=== PATIENT | female | born 1990 | race Two or more races ===

== ENCOUNTER 2023-10-13 12:19 | Emergency (ER) | payer MEDICAID ==
[~2023-10-13] VITALS: Ht 165.1 cm; Wt 88.9 kg
[~2023-10-13 12:19] MED LIST: EST0625T; HYDR500T13; IBUP-1455 PO; MEDR10TA9
[2023-10-13 14:19] LABS: Urine Bacteria FEW /hpf (None Seen); Urine Blood Negative /uL (Negative); Urine Clarity Clear (Clear); Urine Color Colorless (Yellow); Urine Protein, UAD Negative (Negative); Urine Specific Gravity 1.003 (1.001-1.035); Urine Urobilinogen Normal (Negative); Urine WBC 1 /hpf (0 - 5)
[2023-10-13 14:57] VITALS: PULSE 75; RESP 18; TEMP 99; O2SAT 96
[2023-10-13 15:04] LABS: Basophils # (auto) 0.1 10 ^3/uL (0-0.2); Basophils % (auto) 1.1 % (0.0-2.0); Eosinophils # (auto) 0.2 10 ^3/uL (0-0.8); Eosinophils % (auto) 2.8 % (0.0-7.0); Hematocrit 42.9 % (36.0-46.0); Hemoglobin 14.9 g/dL (12.2-16.2); Lymphocytes # (auto) 2.2 10 ^3/uL (0.4-5.4); Lymphocytes % (auto) 39.6 % (10.0-50.0); Mean Corpuscular Hemoglobin 32.8 pg (28.0-32.0); Mean Corpuscular Hgb Conc. 34.8 g/dL (32.0-36.0); Mean Corpuscular Volume 94.4 fL (80.0-100.0); Monocytes # (auto) 0.4 10 ^3/uL (0-1.3); Neutrophils # (auto) 2.7 10 ^3/uL (1.6-8.6); Neutrophils % (auto) 48.5 % (37.0-80.0); Nucleated Red Blood Cells % 0.3 %; Red Blood Cells 4.54 10^6/uL (4.0-5.20); Red Cell Distribution Width 13.2 % (11.8-14.3); White Blood Cell 5.5 10^3/uL (4.4-10.8)
[2023-10-13 15:12] LABS: Chloride 107 mmol/L (98-107); Potassium 3.9 mmol/L (3.5-5.1); Sodium 143 mmol/L (136-145)
[2023-10-13 15:13] LABS: Anion Gap 13 (5-15); Carbon Dioxide 23 mmol/L (20-30)
[2023-10-13 15:14] LABS: Calcium 10.2 mg/dL (8.5-10.1)
[2023-10-13 15:18] LABS: BUN/Creatinine Ratio 12.7 (10.0-20.0); Blood Urea Nitrogen 9 mg/dL (9-23); Glucose 86 mg/dL (74-106)
[2023-10-13] MEDS: KETOROLAC TROMETH 60MG/2ML VIAL IM ONE (15:50)
[2023-10-13 15:58] VITALS: BP 160/90
[2023-10-13] MEDS ORDERED: SUMA50TA2 PO (16:13)
[2023-10-13] MEDS ORDERED: LOSA-534 PO (16:24)
== END 2023-10-13 16:15 | disposition home or self-care (01) ==
LOC: ER 12:19
DX: R00.2 Palpitations (principal); G43.909 Migraine, unspecified, not intractable, without status migrainosus; I10 Essential (primary) hypertension
CPT/HCPCS: 36415; 80048; 81001; 84443; 84484; 85025; 93005; 96372; 99284; J1885

== ENCOUNTER 2023-11-05 00:36 | Emergency (ER) | payer MEDICAID ==
[~2023-11-05] VITALS: Ht 165.1 cm; Wt 90.0 kg
[~2023-11-05 00:36] MED LIST changes: +LOSA-534 PO; +SUMA50TA2 PO
[2023-11-05 01:00] VITALS: PULSE 79; RESP 21; O2SAT 98
[2023-11-05] MEDS: MORPHINE SULFATE 4 MG/ML SYR/VIAL IV ONE ×2 (01:03→02:56)
[2023-11-05 03:00] VITALS: O2SAT 96
[2023-11-05 03:26] VITALS: BP 139/76; PULSE 90; RESP 18
== END 2023-11-05 03:37 | disposition home or self-care (01) ==
LOC: ER 00:36 → EDBD 00:36 → ER 03:37
DX: S82.842A Displaced bimalleolar fracture of left lower leg, initial encounter for closed fracture (principal); I10 Essential (primary) hypertension; E78.5 Hyperlipidemia, unspecified; W18.09XA Striking against other object with subsequent fall, initial encounter; Y93.01 Activity, walking, marching and hiking; Y92.89 Other specified places as the place of occurrence of the external cause; Y99.8 Other external cause status
CPT/HCPCS: 29515; 73590; 73610; 96374; 96376; 99284; J2270